=== PATIENT | male | born 1975 | race Two or more races ===

== ENCOUNTER 2016-10-17 04:53 | Emergency (ER) | payer OTHER ==
--- NOTE | ~2016-10-17 | EKG ---
PATIENT: RODOLFO THAYER UNIT #: [id number] Ventricular Rate: 59 BPM Atrial Rate: 59 BPM P-R Interval: 128 ms QRS Duration: 88 ms Q-T Interval: 428 ms QTC Calculation(Bezet): 423 ms P [place]: 72 degrees Calculated R [place]: 59 degrees Calculated T [place]: 28 degrees Diagnosis Line: Sinus bradycardia Diagnosis Line: Otherwise normal ECG Diagnosis Line: No previous ECGs available Diagnosis Line: Confirmed by RADHAMES CONTRERAS MD ([id number]) on Diagnosis Line: 10/17/2016 5:09:27 PM INTERPRETING MD: DIANE CABRAL
--- NOTE | ~2016-10-17 | CR72 ---
[facility] A Service of [facility] RADIOLOGY TEXT RESULTS PATIENT: RODOLFO THAYER LOCATION: [facility] : 71 UNIT #: [id number] AGE: [address]: Becca Alejandro APRN SEX: M ORDER DR: [id number] [facility] [address] [place], [place] [address] [id number] E MR#: [id number] Acc #: [id number] NAME: RODOLFO THAYER : 1975 SEX: M STUDY DATE/TIME: 10/17/2016 5:58 UNIT: [facility] ROOM: STUDY DESCRIPTION: CR Chest Single View Portable Attending Physician: Becca Alejandro A.P.R.N. Ordering Physician: Becca Alejandro A.P.R.N. Primary Care Physician: Primary Care Physician No MEDICAL IMAGING REPORT This report is preliminary unless electronic signature is present EXAM Portable AP view of the chest COMPARISON None. INDICATION 41-year-old male with dyspnea and weakness for 2 days. FINDINGS Allowing for portable apical lordotic positioning, cardiomediastinal silhouette is likely within normal limits. No evidence of pneumothorax or pleural effusion. Faint band-like opacities in the medial lung bases bilaterally are most consistent with atelectasis. IMPRESSION Faint, symmetric medial bibasilar band-like opacities most in keeping with atelectasis. No convincing evidence of pneumonia or other acute finding in the chest. Clinical correlation recommended. Gas containing structure in the medial left lower chest may reflect superimposition of the normal gastric air bubble over the lower chest given apical lordotic positioning. Small hiatal hernia cannot be excluded. Dictated by... Brendon Matos M.D. THIS IS AN ELECTRONICALLY VERIFIED REPORT Brendon Matos M.D. at 10/23/2016 9:12 PM Enrique TD: 10/17/2016 12:23 JOB #: [id number] [facility] A Service of [facility] RADIOLOGY TEXT RESULTS PATIENT: RODOLFO THAYER [id number] [birth year] UNIT #: [id number] AGE: [address]: Becca Alejandro APRN SEX: M ORDER DR: MEDICAL IMAGING REPORT Page 1 of 1 COPY
[2016-10-17 05:32] LABS: URINE SOURCE CLEAN CATCH
[2016-10-17 05:37] LABS: BASOPHIL# 0.1 X10e3 (0-0.3); BASOPHIL% 0.9 % (0-2.5); EOSINOPHIL# 0.3 X10e3 (0-0.7); EOSINOPHIL% 3.3 % (0.0-7.0); HEMATOCRIT 30.6 % (38.0-50.0); HEMOGLOBIN 8.7 gm/dL (13.0-16.0); LYMPHOCYTE# 3.1 X10e3 (1.0-3.5); LYMPHOCYTE% 32.1 % (17.0-45.0); MEAN CELL VOLUME 58.4 FL (83-96); MEAN CORPUSCULAR HEMOGLOBIN 16.6 PG (28-34); MEAN CORPUSCULAR HGB CONC 28.5 g/dL (30-36); MEAN PLATELET VOLUME 8.6 FL (6.5-11.5); MONOCYTE# 0.9 X10e3 (0-1.0); MONOCYTE% 9.7 % (3.0-12.0); NEUTROPHIL# 5.1 X10e3 (1.5-7.1); PLATELET COUNT 285 X10e3 (140-420); RED BLOOD COUNT 5.25 X10e (3.90-5.60); WHITE BLOOD COUNT 9.5 X10e3 (4.0-10.5)
[2016-10-17 05:40] LABS: URINE APPEARANCE CLEAR; URINE BILIRUBIN NEG (NEG); URINE BLOOD NEG (NEG); URINE COLOR YELLOW; URINE GLUCOSE NEG (NEG); URINE KETONE NEG (NEG); URINE LEUKOCYTE ESTERASE TRACE (NEG); URINE NITRATE NEG (NEG); URINE PROTEIN NEG (NEG); URINE SPECIFIC GRAVITY 1.019 (1.003-1.035)
[2016-10-17 05:42] LABS: URBCS1 AUWI 0-2 /[HPF] (0-2); URINE BACTERIA AUWI NEG (NEGATIVE); URINE SQUAMOUS EPITHELIAL CELL NONE SEEN /[HPF]
[2016-10-17 05:43] LABS: CULTURE INDICATED? NO
[2016-10-17 05:44] LABS: DIFF IND YES
[2016-10-17 05:49] LABS: POC - CKMB <1.0 ng/mL (0.0-7.9); POC - TROPONIN <0.05 ng/mL (<=0.05)
[2016-10-17 05:54] LABS: INR 0.9; PARTIAL THROMBOPLASTIN TIME 22.9 SECONDS (23.5-31.3); PROTHROMBIN TIME (PATIENT) 10.2 SECONDS (10.0-11.7)
[2016-10-17 05:59] LABS: ALBUMIN SERUM 3.9 g/dL (3.5-5.0); AMPHETAMINE NEG (NEG); BARBITURATES NEG (NEG); BENZODIAZEPINES NEG (NEG); BILIRUBIN,TOTAL 0.9 mg/dL (0.2-2.0); CALCIUM SERUM 8.8 mg/dL (8.4-10.2); COCAINE NEG (NEG); GLOM FILT RATE Estimated 91.8 mL/min (>60); MARIJUANA POS (NEG); OPIATES NEG (NEG); POTASSIUM 3.6 mmol/L (3.5-5.1); PROTEIN TOTAL SERUM 7.5 g/dL (6.0-8.3); TRICYCLIC ANTIDEPRESSANTS NEG (NEG); U METHADONE NEG (NEG)
[2016-10-17 06:40] LABS: ANISOCYTOSIS MOD; ELLIPTOCYTES PRESENT; HYPOCHROMIA SL; PLATELET ESTIMATE NORMAL (NORMAL); POIKILOCYTOSIS SL
[2016-10-17 06:41] LABS: MICROCYTOSIS SL
== END 2016-10-17 07:00 | disposition home or self-care (01) ==
LOC: CED 04:53
PROVIDERS: Nurse Practitioner
DX: D50.9 Iron deficiency anemia, unspecified (principal); F12.10 Cannabis abuse, uncomplicated; Z91.041 Radiographic dye allergy status
CPT/HCPCS: 36415; 71010; 80053; 80307; 81003; 82553; 83690; 84484; 85025; 85610; 85730; 93005; 96361; 96374; 96375; 99284; J1885